=== PATIENT | female | born 1950 | race Caucasian/White ===

== ENCOUNTER 2024-07-19 09:35 | Emergency (ER) | payer MEDICARE, SELFPAY ==
--- NOTE | ~2024-07-19 | XR_ITS ---
EXAMINATION: XR chest 2V DATE: 07/19/2024 10:57 INDICATION: Pneumonia TECHNIQUE: frontal and lateral views of the chest were obtained. COMPARISON: None FINDINGS: Elevation the right hemidiaphragm. Subtle opacity in the medial right lower lung zone likely the righ t middle lobe which could represent atelectasis or pneumonia. No pulmonary edema, pleural effusion or pneumothorax. The cardiomediastinal silhouette is normal. Cholecystectomy clips in right upper quadr ant. Instrumented anterior spinal fusion in the cervical spine and posterior spinal fusion in the tho racolumbar spine. Multiple suture anchors at the right humeral head likely for rotator cuff repair. T here is persistent narrowing of the right subacromial space suggesting possible recurrent tear. IMPRESSION: 1. Elevation right hemidiaphragm with subtle opacities at the medial right lower lung zone which coul d represent atelectasis or pneumonia. Reviewed, dictated and finalized at location A. L MANAGEMENT ASSOCIATE IMPRESSION: 1. Elevation right hemidiaphragm with subtle opacities at the medial right lowe r lung zone which could represent atelectasis or pneumonia.
--- NOTE | ~2024-07-19 | CT_ITS ---
EXAMINATION: CT brain wo con DATE: 07/19/2024 10:43 INDICATION: Headache TECHNIQUE: Computed tomography (CT) of the head was performed without intravenous contrast. Sagittal and coronal reconstructions were performed. The mA was adjusted according to patient size. Iterative reconstruction technique was employed. The dose-length product was 605.33 mGy-cm. COMPARISON: None FINDINGS: No acute intracranial hemorrhage, acute infarction or abnormal extra axial fluid collection. Matter w sylvia matter Ventricles are normal and symmetric. No mass/mass effect. Changes of bilateral intraocula r lens replacement. The orbits and mastoid air cells are normal. Mild mucosal thickening in the left ethmoid sinus. Intracranial calcified cerebral atherosclerosis is noted. IMPRESSION: 1. Mild scattered white matter hypoattenuation consistent with chronic small vessel ischemic disease. No acute intracranial process. Reviewed, dictated and finalized at location A. CIPAL WEB DEVELOPER IMPRESSION: 1. Mild scattered white matter hypoattenuation consistent with chronic small ve ssel ischemic disease. No acute intracranial process.
[2024-07-19 09:46] VITALS: BP 131/98; PULSE 103; RESP 18; TEMP 36.6; O2SAT 97
--- NOTE | 2024-07-19 10:10 | ECG_ITS ---
Test Date: 2024-07-19 11:00:35 Measurements Intervals Superior Rate: 88 P: 15 HI: 186 QRS: -41 QRSD: 82 T: 2 QT: 345 QTc: 418 Interpretive Statements SINUS RHYTHM LOW QRS VOLTAGE IN PRECORDIAL LEADS CONSIDER ANTEROSEPTAL INFARCT, AGE INDETERMINATE INFERIOR INFARCT, AGE INDETERMINATE BASELINE ARTIFACT- I, II, AVR, AVL, AVF, V4-V6 ABNORMAL ECG No previous ECG available for comparison Electronically Signed On 07-19-2024 12:03:21 CLOSING AGENT by Angel Luis Orozco D.O.
[2024-07-19 10:17] VITALS: BP 129/71; PULSE 92; RESP 20; O2SAT 97
[2024-07-19 10:19] VITALS: O2SAT 96
--- NOTE | 2024-07-19 10:23 | ED.URI ---
HPI - URI/Sore Throat General Chief Complaint: Upper Respiratory Infection Stated Complaint: URI Time Seen by Provider: 07/19/24 10:05 History of Present Illness HPI Narrative: 73-year-old female with a past medical history including urinary incontinence, hypertension, hyperlipidemia. Today patient presents to the emergency department chief complaint of generalized malaise, worsening cough, nocturia, myalgias and body aches since Sunday. She was at a waiting room at another facility getting annual checkup and then she started developing symptoms of flu-like illness similar to other patrons around her. Patient states that she has not been able to go to sleep but she has been coughing relentlessly throughout the night, cough is productive. Reports generalized malaise and aches in major muscle groups. is at bedside providing collateral formation. Patient has been slightly more forgetful lately and falling frequently. Patient states she has not fallen and hit her head and does not syncopized during any of the events which just feels unsteady and blames her lack of sleep. On review of her previous visit summary from 4 days ago patient had recent medication changes including uptitration of her Abilify from 5 mg to 10 mg and and taking her off of Vyvanse. No other medication changes, otherwise unremarkable review of patient's external medical records. Related Data Allergies Allergy/AdvReac Type Severity Reaction Status Date / Time naproxen Allergy Intermediate Gastrointestinal Verified 07/19/24 10:23 Upset Review of Systems Review of Systems: As reviewed above in HPI Exam Narrative: GENERAL: [Well-appearing, well-nourished, and in no acute distress.] HEAD: [Normocephalic, atraumatic.] EYES: [PERRLA and EOMI.] ENT: Nares clear, no rhinorrhea or epistaxis. Mucous membranes moist. NECK: Supple. Cervical fusion scars evident, no tenderness to the midline spine CHEST: Coarse breath sounds, no respiratory distress or tachypnea, coughing frequently HEART: [Regular rate and rhythm]. No murmur heard. [Normal peripheral pulses.] ABDOMEN: Soft and nondistended, rectus diastasis is noted, no hernias or masses, [nontender], [No rigidity or guarding] EXTREMITIES: Normal range of motion. [No edema.] SKIN: Warm, dry, no rash. NEURO: [No focal deficits]. Alert and oriented [x3.] No ataxia in the arms or legs, ambulates without assistance, no nystagmus. PSYCH: [Normal mood and affect.] Course Vital Signs Vital signs: Vital Signs Temperature 36.6 C 07/19/24 09:46 Pulse Rate 103 H 07/19/24 09:46 Respiratory Rate 18 07/19/24 09:46 Blood Pressure 131/98 H 07/19/24 09:46 Pulse Oximetry 97 07/19/24 09:46 Temperature 36.6 C 07/19/24 09:46 Pulse Rate 81 07/19/24 13:01 Respiratory Rate 20 07/19/24 13:01 Blood Pressure 129/75 07/19/24 13:01 Pulse Oximetry 95 07/19/24 13:01 Oxygen Delivery Room Air 07/19/24 10:19 MDM - URI/Sore Throat MDM Narrative Medical decision making narrative: 73-year-old female presenting to the emergency department for flu-like symptoms including cough that is productive, generalized malaise, body aches, diarrhea. Patient states she has been coughing and not being able to sleep for last 2 days. Symptoms are going on for last 5 days. Exposed to recent sick contacts. She is otherwise well-appearing not any acute distress. Has normal neurological assessment, vital signs are all within normal limits, no tachycardia, fever, hypoxia or blood pressure concerns. Recent medication changes including changing her Abilify to 10 mg in stopping Vyvanse at her PCPs office 5 days ago. Patient coughs frequently throughout the examination is coarse breath sounds. Suspicion presently is for viral illness such as flu or COVID, RSV. Pneumonia or bronchitis or also possible. Electrolyte disturbances from the diarrhea could be causing her weakness. Given patient's age and risk factors especially with to frequent falls from feeling weak we ordered CT of the head, electrolyte panel, CBC, urinalysis give her fluid bolus and EKG obtained. Workup reveals no leukocytosis or anemia. Normal platelet count. Electrolytes within normal limits, normal renal function. Mildly elevated bilirubin but otherwise within normal limits LFTs. His urinalysis has no red or white cells, negative leukocyte esterase, skin bacteria seen. No symptoms of a urinary tract infection, will send for culture. For influenza positive with a right-sided opacity on x-ray consistent with pneumonia. Given patient's cough, stable vital signs and symptoms of a lower respiratory tract infection she was started on antibiotics including Rocephin azithromycin. Discussed admission with the patient and the at bedside. They feel they can take care of themselves and would like to trial outpatient therapy and antibiotics. Patient will be sent home with dual antibiotic coverage including Augmentin azithromycin with cough suppressing medications as needed. Discussed Tamiflu initiation given her symptoms. Patient has normal vital signs on reassessment, unremarkable laboratory assessments, appears well and able to ambulate. She is safe and stable for discharge home and was given strict return precautions and close outpatient PCP follow-up instructions. Medical Records Attestation: I reviewed the patient's medical records. Lab Data Attestation: I reviewed the patient's lab results. 07/19/24 10:27 07/19/24 10: Labs: Lab Results 07/19/24 07/19/24 Range/Units 10: 11:50 WBC 5.3 (4.5-10.0) K/mm3 RBC 5.25 (4.2-5.4) M/mm3 Hgb 15.3 H (12.0-15.0) g/dL Hct 45.5 (37.0-47.0) % MCV 86.7 (80-100) fl MCH 29.1 (26-34) pg MCHC 33.6 (32-36) g/dl RDW 12.5 (11.5-14.5) % Plt Count 149 L (150-375) k/mm3 MPV 9.9 (7.4-10.4) fl Immature Gran % (Auto) 0.4 (0-0.5) % Neut % (Auto) 79.9 H (45.5-73.1) % Lymph % (Auto) 10.5 L (18.3-44.2) % [place] % (Auto) 8.6 H (2.6-8.5) % Eos % (Auto) 0.0 (0-4.4) % Baso % (Auto) 0.6 (0.2-1.2) % Lymph # (Auto) 0.56 L (0.9-3.2) K/mm3 [place] # (Auto) 0.5 (0.1-0.6) K/mm3 Eos # (Auto) 0.0 (0-0.3) K/mm3 Baso # (Auto) 0.0 (0.0-0.1) K/mm3 Abs Immat Gran (auto) 0.02 (0.00-0.031) K/mm3 Absolute Neuts (auto) 4.3 (1.3-6.7) K/mm3 Absolute Nucleated RBC 0.000 (0.0-0.012) K/mm3 Nucleated RBC % 0.0 (0.0-0.2) % Sodium 140 (137-145) mmol/L Potassium 3.8 (3.4-5.0) mmol/L Chloride 99 (98-107) mmol/L Carbon Dioxide 29 (22-30) mmol/L Anion Gap 12 (4-12) mmol/L BUN 11 (7-17) mg/dL Creatinine 0.74 (0.7-1.0) mg/dL Estim Creat Clear Calc 51 ml/min Estimated GFR > 60 (59 - ) Glucose 103 (65-110) mg/dL Calcium 9.8 (8.4-10.2) mg/dL Total Bilirubin 1.5 H (0.2-1.3) mg/dL AST 43 H (14-36) U/L ALT 33 (6-35) U/L Alkaline Phosphatase 93 (38-126) U/L Total Protein 8.0 (6.3-8.2) g/dL Albumin 4.7 (3.5-5.1) g/dL Urine Color Yellow (Yellow) Urine Appearance Clear (Clear) Urine pH 5.5 (5.0-9.0) Ur Specific [place] 1.012 (1.001-1.035) Urine Protein Negative (Negative) mg/dL Urine Glucose (UA) Negative (Negative) mg/dL Urine Ketones Negative (Negative) mg/dL Ur Blood (Man) Negative (Negative) Urine Nitrate Positive H (Negative) Urine Bilirubin Negative (Negative) Urine Urobilinogen 0.2 (<2.0) mg/dL Leukocyte Esterase Rfl Negative (Negative) ABRAHAM/UL Urine RBC 0-2 (0-2) /hpf Urine WBC 0-5 (0-3) /hpf Ur Squamous Epith Cells None seen (Few) /hpf Urine Bacteria 3+ H /hpf Urine Casts 0-2 Influenza A (RT-PCR) Positive A (Negative) Influenza B (RT-PCR) Negative (Negative) RSV (RT-PCR) Negative (Negative) SARS-CoV-2 RNA (RT-PCR) Negative (Negative) Imaging Data Attestation: I personally reviewed and interpreted this imaging study as follows: My impression: Impressions Head CT 07/19/24 10:44 IMPRESSION: 1. Mild scattered white matter hypoattenuation consistent with chronic small vessel ischemic disease. No acute intracranial process. Chest X-Ray 07/19/24 10:59 IMPRESSION: 1. Elevation right hemidiaphragm with subtle opacities at the medial right lower lung zone which could represent atelectasis or pneumonia. Discharge Plan Discharge Clinical Impression: Influenza, Community acquired pneumonia Patient Disposition: Home, Self-Care Condition: Stable Instructions: Antibiotic Form, Influenza (ED), Community Acquired Pneumonia (DC) Additional Instructions: We will start you on medications to treat your influenza and your pneumonia including antibiotics and Tamiflu. We will send you home with benzonatate for cough suppression. If you have any worsening symptoms or any other concerns please return to the emergency department for re-evaluation and admission. Patient Language: [place] Citizen Prescriptions: New benzonatate 200 mg capsule 200 mg PO TID PRN (Reason: cough) Qty: 20 0RF azithromycin [Zithromax Z-Hector] 250 mg tablet See Rx Instructions PO .COMPLEX Qty: 6 0RF Rx Instructions: For 250 mg dose pack: take 500 mg today (day 1), then 250 mg for 4 days (days 2-5) amoxicillin-pot clavulanate 875-125 mg tablet 1 tablet PO Q12H 7 Days Qty: 14 0RF oseltamivir [Tamiflu] 75 mg capsule 75 mg PO Q12H 5 Days Qty: 10 0RF Follow-up/Referrals: PHYSICIAN NOT ON STAFF,NONSTAFF [Primary Care Provider] - Time of Disposition: 13:28
[2024-07-19] MEDS: LACTATED RINGERS 1,000 ML 999 ML IV CONT (10:31)
--- OUTSIDE RECORDS SUMMARY | 2024-07-19 10:33 | XMS_ITS | Referral Summary ---
Author Organization [facility] [employer] Address [address] [place] [address] Care Team Providers Care Breaker Operator Name Role Phone Jennifer Avilez MD Primary Care Provider [phone] Source Comments [facility],non-owned Affiliates and Associated Physician Practices is amultiple site organization consisting of ambulatory clinics and hospital sitesin [place], [place] and [place]. This disclosure is being madepursuant to the Care Everywhere program and may not contain all information available regarding this patient. Last updated 18.[facility] [employer] Allergies No known active allergies Medications * Be aware that medications may not be up to date on this document. Alwaysverify current medications with the patient. Medication Sig Dispensed Refills Start Date End Date Status lidocaine (Lidoderm) 5 % patch Apply 1 (one) patch to skin once daily Apply patch to most painful area and remove after 12 hours. May reapply a new patch 12 hours later. 6 patch 03/01/2022 Active cyclobenzaprine (Flexeril) 10 MG tablet Take 1 (one) tablet by mouth 3 times daily as needed for Muscle Spasms 15 tablet 03/01/2022 Active Active Problems No known active problems Social History Tobacco Use Types Packs/Day Years Used Date Smoking Tobacco: Never Smokeless Tobacco: Never Alcohol Use Standard Drinks/Week Comments Never 0 (1 standard drink = 0.6 oz pur e alcohol) AUDIT-C Answer Date Recorded Q1: How often do you have a drink containing alc ohol? Never 02/28/2022 Average Number of Drinks Not on file 022 Frequency of Binge Drinking Not on file 08/2021 Sex and Gender Information Value Date Recorded Sex Assigned at Not on file Gender Identity Not on file Sexual Orientation Not on file Last Filed Vital Signs Vital Sign Reading Time Taken Comments Blood Pressure 125/77 03/01/2022 2:22 AM CDT Pulse 88 03/01/2022 2:22 AM CDT Temperature 36.7 C (98 F) 02/28/2022 2:46 PM CDT Respiratory Rate 18 03/01/2022 2:22 AM CDT Oxygen Saturation 98% 03/01/2022 2:22 AM CDT Inhaled Oxygen Concentration - - Weight 59 kg (130 lb) 02/28/2022 2:46 PM CDT Height 160 cm (5' 3 ) 02/28/2022 2:46 PM CDT Body Mass Index 23.03 02/28/2022 2:46 PM CDT Plan of Treatment Not on file Procedures Procedure Name Priority Date/Time Associated Diagnosis Comments MAMMO BILAT DIAGNOSTIC Routine 10/25/2011 11:26 AM CDT Diffuse cystic mastopathy DEXA BONE DENSITY 2 SITES Routine 08/03/2008 11:30 AM CDT Special Screening for Osteoporosis from Last 3 Months or Most Recently Relevant to Health Maintenance Results * Mammogram Diagnostic Digital Bilateral (G0204) (10/25/2011 11:26 AM CDT) Anatomical Region Laterality Modality Bilateral Mammography 10/25/2011 11:3 6 AM CDT Narrative 10/25/2011 11:45 AM CDT DIGITAL BILATERAL DIAGNOSTIC MAMMOGRAMS DATE: 10/25/2011. PREVIOUS EXAM DATE: 09/26/2010. INDICATION: Diffuse, bilateral breast pain. History of fibrocystic breast disease. TECHNIQUE: Bilateral CC and MLO views. These images were interpreted with the aid of [employer] CAD (version 8.3). TECHNOLOGIST: RT Missy(Sheree)(M). TISSUE DENSITY: Dense. This may lower the sensitivity of mammography. Please correlate with clinical examination. FINDINGS: No significant new findings. Fibronodular parenchymal pattern is again demonstrated bilaterally. ASSESSMENT: BI-RADS 2 BENIGN. RECOMMENDATIONS: Continued screening mammography in one year. The above findings should be correlated with physical examination. A relatively nonspecific study should not preclude additional evaluation if suspicious findings are present clinically. An [employer] Certified Facility. [facility] utilize [employer] as a reminder system to notify patients of their next recommended mammogram. Procedure Note Lissa Webber MD - 10/25/2011 DIGITAL BILATERAL DIAGNOSTIC MAMMOGRAMS DATE: 10/25/2011. PREVIOUS EXAM DATE: 09/26/2010. INDICATION: Diffuse, bilateral breast pain. History of fibrocystic breast disease. TECHNIQUE: Bilateral CC and MLO views. These images were interpreted with the aid of [employer] CAD (version 8.3). TECHNOLOGIST: RT Missy(R)(M). TISSUE DENSITY: Dense. This may lower the sensitivity of mammography. Please correlate with clinical examination. FINDINGS: No significant new findings. Fibronodular parenchymal pattern is again demonstrated bilaterally. ASSESSMENT: BI-RADS 2 BENIGN. RECOMMENDATIONS: Continued screening mammography in one year. The above findings should be correlated with physical examination. A relatively nonspecific study should not preclude additional evaluation if suspicious findings are present clinically. An [employer] Certified Facility. [facility] utilize [employer] as a reminder system to notify patients of their next recommended mammogram. Jennifer Avilez MD MAMMO ORDERABLES * DEXA BONE DENSITY 2 SITES (08/03/2008 11:30 AM CDT) Anatomical Region Laterality Modality Mammography 08/03/2008 12:3 6 PM CDT Impressions 08/03/2008 12:59 PM CDT Using the T-scores of the hips, the patient meets WHO criteria for osteopenia. Therefore, she is thought to have an increased fracture risk as compared to the young adult control population. WORLD HEALTH ORGANIZATION DEFINITIONS OSTEOPENIA = -1 to -2.5 SD BELOW T SCORE. OSTEOPOROSIS = Less than -2.5 SD BELOW T SCORE Narrative 08/03/2008 12:59 PM CDT BONE MINERAL DENSITY STUDY INDICATION: Post menopausal ovarian failure osteoporosis screening. FINDINGS: The patient states that she has had extensive spine surgery therefore the examination was tailored to evaluate the hips. The average bone mineral density of the total hips is 0.768 g/cm2. The T-score is -1.9 and the Z-score is -0.8. Procedure Note Joseph Mooney MD - 08/03/2008 BONE MINERAL DENSITY STUDY INDICATION: Post menopausal ovarian failure osteoporosis screening. FINDINGS: The patient states that she has had extensive spine surgery therefore the examination was tailored to evaluate the hips. The average bone mineral density of the total hips is 0.768 g/cm2. The T-score is -1.9 and the Z-score is -0.8. IMPRESSION Using the T-scores of the hips, the patient meets WHO criteria for osteopenia. Therefore, she is thought to have an increased fracture risk as compared to the young adult control population. WORLD HEALTH ORGANIZATION DEFINITIONS OSTEOPENIA = -1 to -2.5 SD BELOW T SCORE. OSTEOPOROSIS = Less than -2.5 SD BELOW T SCORE Jennifer Avilez MD DEXA ORDERABLES from Last 3 Months or Most Recently Relevant to Health Maintenance Administered Medications Care Teams Breaker Operator Relationship Specialty [place] [id number] [address] [place] [address] PCP - General 09/22/10
--- OUTSIDE RECORDS SUMMARY | 2024-07-19 10:33 | XMS_ITS | Clinical Summary ---
Author Organization [facility] Address [address] [place] [address] Care Team Providers Care Cotton Buyer Name Role Phone Unavailable Primary Care Provider Unavailabl e Allergies No known active allergies Medications No known medications Active Problems No known active problems Social History Tobacco Use Types Packs/Day Years Used Date Smoking Tobacco: Never Assessed Comments Unknown Sex and Gender Information Value Date Recorded Sex Assigned at Not on file Legal Sex Female 11:10 AM PDT Gender Identity Not on file Sexual Orientation Not on file Plan of Treatment Health Maintenance Due Date Last Done Comments Dental Oral Exam 03/11/2022 09/08/2021 Dental Prophylaxis 03/11/2022 09/08/2021 Dental X-Ray: Bitewings 03/11/2022 09/08/2021 Dental X-Ray: Full Mouth 09/10/2024 09/09/2021, 08/26 Dental X-Ray: Panoramic 09/10/2024 09/09/2021, 09/08 Meningococcal B Vaccine Aged Out No l onger eligible based on patient's age to complete this topic Procedures Procedure Name Priority Date/Time Associated Diagnosis Comments PROPHYLAXIS - ADULT Routine 09/08/2021 1 0:15 AM CDT PANORAMIC RADIOGRAPHIC IMAGE Routine 09/08/2021 10:00 AM CDT INTRAORAL - COMPREHENSIVE SERIES OF RADIOGRAPHIC IMAGES Routine 09/08/2021 10:00 AM CDT COMPREHENSIVE ORAL EVALUATION - NEW OR ESTABLISHED PATIENT Routine 09/08/2021 10:00 AM CDT from Last 3 Months or Most Recently Relevant to Health Maintenance Insurance [employer]
--- OUTSIDE RECORDS SUMMARY | 2024-07-19 10:33 | XMS_ITS | Clinical Summary ---
Author Organization [facility] [employer] Address [address] [place] [address] Care Team Providers Care Worker'S Compensation Claims Examiner Name Role Phone Jennifer Avilez MD Primary Care Provider [phone] Source Comments [facility] [employer],non-owned Affiliates and Associated Physician Practices is amultiple site organization consisting of ambulatory clinics and hospital sitesin [place], [place], [place] and [place]. This disclosure is being madepursuant to the Care Everywhere program and may not contain all information available regarding this patient. Last updated 18.[facility] [employer] Allergies No known active allergies Medications * [...] 02/28/2022 2:46 PM CDT Plan of Treatment Health Maintenance Due Date Last Done Comments COLOGUARD (AGES 45-75) - COL ON CA SCREENING 1950 COLON MONITORING 1950 COLONOSCOPY - COLON CA SCREENING 1950 CT COLONOGRAPHY - COLON CA SCREENING 1950 Colorectal Cancer Screening 1950 FIT - COLON CA SCREENING 1950 FLEX SIG - COLON CA SCREENING 1950 LIPID TESTING 1950 HEPATITIS C SCREENING 10/28/1968 DTAP/TDAP/TD VACCINES (1 - Tdap) 1969 PNEUMOCOCCAL VACCINE 50+ (1 of 1 - PCV) 2000 ZOSTER VACCINE (1 of 2) 2000 MAMMOGRAM 10/24/2013 10/25/2011, 09/26/2010, 08/03/2008 COVID-19 VACCINE (3 - 2023-2 5 season) 2024 09/15/2020, 08/17/2020 INFLUENZA VACCINE (#1) 2024 9, 01/24/2017, 06/22/2016 DEPRESSION SCREENING 05/28/2024 Respiratory Syncytial Virus (RSV) Vaccine Pt: or over 60 yrs (1 - 1-dose 75+ series) 2025 BONE DENSITY TESTING Completed 08/03/2008 HEPATITIS B VACCINE Aged Out No longe r eligible based on patient's age to complete this topic HIB VACCINE Aged Out No longer eligi ble based on patient's age to complete this topic HPV VACCINE Aged Out No longer eligi ble based on patient's age to complete this topic MENINGOCOCCAL (Group B) VACCINE Aged Out No longer eligible b ased on patient's age to complete this topic MENINGOCOCCAL VACCINE Aged Out No trini james eligible based on patient's age to complete [...] images were interpreted with the aid of [employer] CAD (version 8.3). TECHNOLOGIST: RT Missy(Sheree)(M). TISSUE [...] if suspicious findings are present clinically. An [employer] Certified Facility. [facility] utilize [employer] as a reminder system to notify patients of their next recommended mammogram. Procedure Note Lissa Webber MD - 10/25/2011 DIGITAL BILATERAL DIAGNOSTIC MAMMOGRAMS DATE: 10/25/2011. PREVIOUS EXAM DATE: 09/26/2010. INDICATION: Diffuse, bilateral breast pain. History of fibrocystic breast disease. TECHNIQUE: Bilateral CC and MLO views. These images were interpreted with the aid of [employer] CAD (version 8.3). TECHNOLOGIST: RT Missy(R)(M). TISSUE [...] if suspicious findings are present clinically. An [employer] Certified Facility. [facility] utilize [employer] as a reminder system to notify patients [...] or Most Recently Relevant to Health Maintenance Care Teams Worker'S Compensation Claims Examiner Relationship Specialty Start [place] [id number] [address] [place] [address] PCP - General 09/22/10
--- OUTSIDE RECORDS SUMMARY | 2024-07-19 10:33 | XMS_ITS | Clinical Summary ---
Author Organization [facility] Administrative Offices Address [address] [place] [address] Care Team Providers Care Deputy Director Of Nursing Name Role Phone Lissa Maldonado Primary Care Provider [phone] Allergies Active Allergy Reactions Criticality Noted Date Comments Naproxen Nausea and Vomiting Low 02/10/2010 Medications L-methylfolate (DEPLIN) 15 mg Tablet Take 15 mg by mouth daily. Active suvorexant 20 mg Tablet Take 20 mg by mouth daily. Active naloxone (NARCAN) 4 mg/spray [place], Non-Aerosol EMERGENCY USE ONLY: Administer 1 spray (4 mg) in one nostril one time. May repeat in alternating nostrils every 2-3 min until responsive or EMS arrives. 2 Each 3 0 Active alendronate (FOSAMAX) 70 mg tablet TAKE 1 TABLET(70 MG) BY MOUTH EVERY 7 DAYS ON AN EMPTY STOMACH BEFORE OTHER MEDICATIONS, WITH 8 OUNCES OF WATER, STAY UPRIGHT FOR 30 MINUTES 12 Tablet 3 4 Active ALPRAZolam (XANAX) 2 mg tablet Take 2 mg by mouth nightly as needed for Insomnia. 4 Active fluvoxaMINE (LUVOX) 100 mg tablet Take 100 mg by mouth 3 times daily. 4 Active pravastatin (PRAVACHOL) 40 mg tabletIndicati ons:Atheroscle rosis of aorta Take 1 Tablet (40 mg) by mouth daily with supper. 100 Tablet 3 5 Active dextroamphetam ine sulfate (DEXTROSTAT) 10 mg Tablet Take 20 mg by mouth 2 times daily. 5 Active ARIPiprazole (ABILIFY) 10 mg tablet Take 1 Tablet by mouth daily. 5 Active Vyvanse 70 mg capsule 4 025 Discontinu ed(Alterna te therapy prescribed ) ARIPiprazole (ABILIFY) 5 mg tablet Take 5 mg by mouth daily. 4 025 Discontinu ed(Alterna te therapy prescribed ) pravastatin (PRAVACHOL) 40 mg tabletIndicati ons:Atheroscle rosis of aorta TAKE 1 TABLET BY MOUTH EVERY DAY WITH SUPPER 100 Tablet 2 4 025 Discontinu ed(Reorder ) Active Problems Problem Noted Date Diagnosed Date Heterogeneously dense tissue of both breasts on mammography 07/14/2024 Age-related osteoporosis wit hout current pathological fracture 01/27/2024 Scoliosis of lumbar spine 01/11/2024 History of fusion of cervical spine 01/11/2024 History of fusion of thoracic spine 01/11/2024 History of fusion of lumbar spine 01/11/2024 Neuropathy 01/11/2024 Transaminitis 12/06/2023 Primary insomnia 07/18/2016 Overview (07/18/2016): Under care of Dr Quarles Atherosclerosis of aorta 09/29/2014 Overview (09/29/2014): Noted on US of Aorta done on 08/07/2013 ADD (attention deficit disorder) 09/29/2014 Overview (09/29/2014): Under care of Dr Jose Quarles Nontoxic multinodular goiter 06/21/2010 Disorder of bone and cartilage, unspecified 09/25 Recurrent major depressive disorder, in full rem ission 08/05/2008 Vitamin D deficiency 08/05/2008 Resolved Problems Problem Noted Date Diagnosed Date Resolved Date Pain in limb 09/09/2014 01/11/2024 Neck sprain 08/27/2014 01/11/2024 Sprain of foot 08/27/2014 01/11/2024 Occipital bone fracture 08/16/201412/26 Lumbago 08/05/2008 01/11/2024 Encounter for long-term (cur rent) use of other medications 07/28/2008 03/30/2020 Encounters Date Type Department Care Team Description 07/16/2024 External Device Data [facility] ABSTRACTION Provider, Abstract 07/16/2024 External Device Data [facility] ABSTRACTION Provider, Abstract 07/14/2024 11:00 AM CAREER EDUCATION TEACHER Office Visit [address] [phone] Lissa Maldonado DO Age-related osteoporosis without current pathological fracture (Primary Dx); Atherosclerosis of aorta; Mixed hyperlipidemia; Nontoxic multinodular goiter; Attention deficit hyperactivity disorder (ADHD), unspecified ADHD type; Primary insomnia; Recurrent major depressive disorder, in full remission; Heterogeneously dense tissue of both breasts on mammography 07/08/2024 External Device Data [facility] ABSTRACTION Provider, Abstract 06/24/2024 External Device Data [facility]STRACTION Provider, Abstract 05/29/[address] [phone] Paloma Bernal MD Atherosclerosis of aorta 05/07/[address] [phone] Lissa Maldonado DO Paperwork 05/07/[address] [phone] Lissa Maldonado DO from Last 3 Months Immunizations Immunization Administration Dates Next Due (ADACEL/BOOSTRIX)(10 YR UP) TDAP VACCINE, 0.5ML, IM 03/30/2020 (PFIZER)(12 YR UP) COVID-19 VACCINE - EMERGENCY USE AUTHORIZATION, MRNA, [id number](PF) 30 MCG/0.3 ML IM SUSP 04/13/2021 (PNEUMOVAX 23)(50 YRS UP) PN EUMOCOCCAL POLYSACCHARIDE (PPV23) 0.5 ML, IM 04/09/2019 (PREVNAR 13)(6 WKS UP) PNEUM OCOCCAL CONJUGATE (PCV13) 0.5 ML, IM 06/22/2016 (SPIKEVAX) (12 YRS UP PRIMAR Y SERIES) COVID-19 VACCINE - MRNA-1273(PF) 100 MCG/0.5 ML IM SUSP 09/06/2020,08/17/2020 INFLUENZA VACCINE HIGH DOSE QUADRIVALENT 65 YR UP PF IM 04/09/2023,03/07/2022,03/30/2021,02/24 INFLUENZA VACCINE HIGH DOSE TRIVALENT SPLIT VIRUS, (65 YR UP), 0.5ML (PF), IM 06/02/2024 Influenza Vaccine High Dose 65+ Yrs IM 9,01/24/2017,06/22/2016 Skin Test TB 01/08/2017 Family History Medical History Relation Name Comments Heart Disease Brother 3 80's Other Brother 3 80's Leukemia Unknown Brother 3 80's Other Brother 4 64 yrs Obesity Other Sister 1 76 yrs Alcohlic Healthy Sister 2 72 yrs Relation Name Status Comments Brother 1 (Age 55 yrs) Suicid e Brother 2 (Age 78 yrs) Kidney failure, Alcohlism Brother 3 80's Other Brother 4 64 yrs Alive Father (Age 88 yrs) Aortic Aneurysm rupture Mother (Age 76 yrs) unknow n Sister 1 76 yrs Alive Sister 2 72 yrs Alive Social History Tobacco Use Types Packs/Day Years Used Date Smoking Tobacco: Never Passive Smoke Exposure: Never Smokeless Tobacco: Never Tobacco Cessation:Counseling Given: No Alcohol Use Standard Drinks/Week Comments Yes 0 (1 standard drink = 0.6 oz pur e alcohol) social Financial Resource Strain Answer Date R ecorded How hard is it for you to pa y for the very basics like food, housing, medical care, and heating? Not hard at all 05/10/2022 Food Insecurity Answer Date Recorded In the past 12 months, have you worried that your food would run out before you had money to buy more? Never true 05/10/2022 In the past 12 months, did y ou run out of food and didn't have money to buy more? Never true 05/10/2022 Transportation Needs Answer Date Record ed In the past 12 months, has l ack of transportation kept you from medical appointments or from getting medications? No 05/10/2022 Lack of Transportation (Non-Medical) Not on file 05/10/2022 Feeling Safe Answer Date Recorded Are you in a relationship wi th someone who hurts you emotionally and/or physically? No 12/11/2023 Comments No Sex and Gender Information Value Date Recorded Sex Assigned at Not on file Legal Sex Female 5:56 AM CAREER EDUCATION TEACHER Gender Identity Not on file Sexual Orientation Not on file Last Filed Vital Signs Vital Sign Reading Time Taken Comments Blood Pressure 104/68 07/14/2024 10:48 AM CAREER EDUCATION TEACHER Pulse 88 07/14/2024 10:48 AM CAREER EDUCATION TEACHER Temperature 36.2 C (97.1 F) 07/14/2024 10:48 AM CAREER EDUCATION TEACHER Respiratory Rate 13 07/14/2024 10:48 AM CAREER EDUCATION TEACHER Oxygen Saturation 93% 07/14/2024 10:48 AM CAREER EDUCATION TEACHER Inhaled Oxygen Concentration - - Weight 68.3 kg (150 lb 9.6 oz) 07/14/2024 10:48 AM CAREER EDUCATION TEACHER Height 162.6 cm (5' 4 ) 07/14/2024 10:48 AM CAREER EDUCATION TEACHER Body Mass Index 25.85 07/14/2024 10:48 AM CAREER EDUCATION TEACHER Plan of Treatment Upcoming Encounters Date Type Department Care Team (Late st Contact Info) Description 01/12/2025 10:00 AM CDT Office Visit [facility] [id number] [phone] Lissa Maldonado, [id number] [place] [phone] Health Maintenance Due Date Last Done Comments FIT-DNA Q 3 years 11/03/1995 FIT/FOBT Q 1 year 11/03/1995 Flex Sig/CT Colonography Q 5 years 11/03/1995 ZOSTER VACCINE (1 of 2) 2000 COVID-19 Vaccine (2023-2 5 season) 2024 04/13/2021, 09/06/2020, 08/17/2020 [place] Preventative Visit/Annual Wellness Visit 05/28/2024 01/11/2024, 05/10/2022, 03/30/2021, Additional history exists BREAST CANCER SCREENING 02/10/2025 02/11/20 24, 07/04/2022, 05/18/2020, Additional history exists OSTEOPOROSIS SCREENING 07/04/2025 , 07/04/2022, 05/18/2020, Additional history exists RSV VACCINE (60+ or ) (1 - 1-dose 75+ series) 2025 COLORECTAL SCREENING 12/10/2025 12/11/2023, 12/11/2023, 12/09/2014 Colorectal Cancer Screening 12/10/2025 DTAP/TDAP/TD VACCINES (2 - T d or Tdap) 03/30/2030 03/30/2020 PNEUMOCOCCAL VACCINE 65+ YEARS Completed 04/09/2019 , 06/22/2016 INFLUENZA VACCINE Completed 06/02/2024, , 03/07/2022, Additional history exists Medical Devices Implanted Type Area Entertainment Dancer Device Identifier Shelf Expiration Date Model / Serial / Lot Plate Foot Mtp/Mpj Combo 4d Rt 70-0110 - [id number] Implanted:Qty: 1 on 08/10/2017 by Damir Vicente MD at [facility] Plate Right: Toe [employer] 70-0110 / / Description:Load # 4 AUG 09 2017 Screw Acutrak 24mm At2-S24-S - [id number] Implanted:Qty: 1 on 08/10/2017 by Damir Vicente MD at [facility] Screw Right: Toe [employer] 11/16/2023 AT2-S24-S / / [id number] Description:Right great toe. All [employer] foot components are processed on requisition,[id number]. Screw Hexalobe 3.5x10mm 30-0256 - [id number] Implanted:Qty: 1 on 08/10/2017 by Damir Vicente MD at [facility] Screw Right: Toe [employer] 30-0256 / / Description:Load # 4 aug 09 Screw Hexalobe Loc 3.5x16mm 30-0236 - [id number] Implanted:Qty: 3 on 08/10/2017 by Damir Vicente MD at [facility] Screw Right: Toe [employer] 30-0236 / / Description:Load # 4 AUG 09 2017 Screw Hexalobe 3.5x18mm 30-0260 - [id number] Implanted:Qty: 1 on 08/10/2017 by Damir Vicente MD at [facility] Screw Right: Toe [employer] 30-0260 / / Description:Load # 4 AUG 09 2018 Wire K [id number] Ws-1407st - [id number] Implanted:Qty: 2 on 08/10/2017 by Damir Vicente MD at [facility] Wire Right: Toe [employer] WS-1407ST / / Rods In Back,Bolts In Back And Neck Cage Bolts In Right Shoulder Explanted Type Area Entertainment Dancer Device Identifier Shelf Expiration Date Model / Serial / Lot Screw Hexalobe 3.5x22mm 30-0262 - [id number] Explanted:Qty: 1 on 08/10/2017 by Damir Vicente MD at [facility] Screw Right: Toe [employer] 30-0262 / / Description:Load # 4 AUG 09 2017 Screw Hexalobe 3.5x16mm 30-0259 - [id number] Explanted:Qty: 1 on 08/10/2017 by Damir Vicente MD at [facility] Screw Right: Toe [employer] 30-0259 / / Description:Load # 4 AUG 09 2018 Wire K Trocar [id number] - [id number] Explanted:Qty: 1 on 08/10/2017 by Damir Vicente MD at [facility] Wire Right: Toe [employer] [facility] [[email or web address] [id number] / / Description:Load # 1 AUG 03 2018 Right great toe. Procedures Procedure Name Priority Date/Time Associated Diagnosis Comments MAMMO 3D RALF SCREEN BILAT W OR WO CAD Routine 02/11/2024 1:15 PM CDT Screening mammogram, encounter for COLONOSCOPY REPORT 12/11/2023 9: 17 AM CDT XR DEXA BONE DENSITY AXIAL 1 OR MORE SITES Routine 07/04/2022 12:52 PM CAREER EDUCATION TEACHER Post-menopausal Osteopenia of left forearm from Last 3 Months or Most Recently Relevant to Health Maintenance Results * MAMMO 3D RALF SCREEN BILAT W OR WO CAD (02/11/2024 1:15 PM CDT) Anatomical Region Laterality Modality Breast Bilateral Mammography 02/11/2024 1:15 PM CDT Impressions 02/11/2024 1:47 PM CDT IMPRESSION: Negative bilateral screening mammogram. Recommend routine followup. OVERALL FINAL ASSESSMENT: BI-RADS CATEGORY 1: Negative DICTATION LOCATION: [facility] Narrative 02/11/2024 1:47 PM CDT BILATERAL SCREENING DIGITAL MAMMOGRAMS WITH COMPUTER ASSISTED DIAGNOSIS WITH TOMOGRAPHY DATE: 02/11/2024 1:15 PM HISTORY: Annual screening. COMPARISON: 07/04/2022 and 05/18/2020. TECHNIQUE: A bilateral screening mammogram was performed. Low-dose full-field digital breast tomosynthesis examination was performed with 2D and 3D acquisitions. Examination is read in conjunction with computer aided detection. BREAST COMPOSITION: Heterogeneously dense, which limits the sensitivity of mammography. FINDINGS: No new masses, suspicious calcifications, or areas of asymmetry or distortion are identified. The images were reviewed using the CAD system. Procedure Note Brigida Panda MD - 02/11/2024 BILATERAL SCREENING DIGITAL MAMMOGRAMS WITH COMPUTER ASSISTED DIAGNOSIS WITH TOMOGRAPHY DATE: 02/11/2024 1:15 PM HISTORY: Annual screening. COMPARISON: 07/04/2022 and 05/18/2020. TECHNIQUE: A bilateral screening mammogram was performed. Low-dose full-field digital breast tomosynthesis examination was performed with 2D and 3D acquisitions. Examination is read in conjunction with computer aided detection. BREAST COMPOSITION: Heterogeneously dense, which limits the sensitivity of mammography. FINDINGS: No new masses, suspicious calcifications, or areas of asymmetry or distortion are identified. The images were reviewed using the CAD system. IMPRESSION: Negative bilateral screening mammogram. Recommend routine followup. OVERALL FINAL ASSESSMENT: BI-RADS CATEGORY 1: Negative DICTATION LOCATION: [facility] us Lissa Cardonarocco Maldonado DO MAMMO ORDERABLES Final Res ult * COLONOSCOPY REPORT (12/11/2023 9:17 AM CDT) Narrative Procedure Note Tonie Mars DO - 12/11/2023 9:17 AM CDT [facility] Patient Name: Daniela Cotter Procedure Date: 12/11/2023 Date of : 1950 Attending MD: Tonie Mars MD, Procedure: Colonoscopy Indications: Chronic diarrhea, Fecal incontinence Providers: Tonie Mars MD Referring MD: Paloma Bernal MD Medicines: Monitored Anesthesia Care Complications: No immediate complications. Procedure: Informed consent was obtained for the procedure, including moderate sedation after risks were discussed. Based on the pre-procedure assessment, including review of the patient's medical history, medications, allergies, and review of systems, the patient was deemed to be an appropriate candidate for sedation. A timeout was performed. Continuous ECG monitoring, pulse oximetry, blood pressure monitoring, and direct observation were performed. The Colonoscope was introduced through the anus and advanced to the terminal ileum, with identification of the appendiceal orifice and IC valve. The colonoscopy was performed without difficulty. The patient tolerated the procedure well. The quality of the bowel preparation was evaluated using the BBPS ([place] Bowel Preparation Scale) with scores of: Right Colon = 3 (entire mucosa seen well with no residual staining, small fragments of stool or opaque liquid), Transverse Colon = 3 (entire mucosa seen well with no residual staining, small fragments of stool or opaque liquid) and Left Colon = 3 (entire mucosa seen well with no residual staining, small fragments of stool or opaque liquid). The total BBPS score equals 9. The quality of the bowel preparation was excellent. A physical exam was performed. Informed consent was obtained from the patient after explaining all of the risks (perforation, bleeding, infection, and adverse effects to the medication), benefits and alternatives to the procedure which the patient appeared to understand and so stated. The patient was connected to the monitoring devices and placed in the left lateral position. Continuous oxygen was provided with a nasal cannula and IV medicine administered through an indwelling cannula. After adequate conscious sedation was achieved, a digital exam was performed and the colonoscope introduced into the rectum and advanced under direct visualization to the terminal ileum. The terminal ileum and cecum were identified by visual landmarks. The scope was subsequently removed slowly while carefully examining the color, texture, anatomy and integrity of the mucosa on the way out. In the rectum, the scope was retroflexed to evaluate for internal hemorrhoids and anorectal pathology. The patient was subsequently transferred to the recovery area in satisfactory condition. Estimated Blood Loss: Estimated blood loss: none. Findings: KEITH without stricture or mass. Poor rectal tone. The terminal ileum appeared normal. One 3 mm sessile polyp in the cecum. The polyp was removed with a cold snare. Resection and retrieval were complete. Sigmoid diverticulosis, minimal severity. Normal appearance of the colonic mucosa. Biopsies for histology were taken with a cold forceps from the entire colon for evaluation of microscopic colitis. Small internal hemorrhoids. Impression: Poor rectal tone Polyp x1 Diverticulosis Random colon biopsies for microscopic colitis Recommendation: - Await pathology results. - Repeat colonoscopy in 7-10 years pending pathology. - Anorectal manometry ordered, pending completion. Will likely need pelvic floor PT with biofeedback. - Note: Colonoscopy for surveillance purposes is optional between age 75-85. The decision for continued surveillance should be based patient preference, life expectancy, overall health, and prior surveillance history. If continued surveillance appropriate, see above recommendation for interval. - No driving or operating heavy machinery 12-24 hours after anesthesia. - Advance to previous diet as tolerated. - Resume previous home medications. - Written discharge instructions were provided to the patient. - The findings and recommendations were discussed with the designated responsible adult. Attending Participation: I personally performed the entire procedure. Tonie Mars MD 12/11/2023 9:17:22 AM Number of Addenda: [address]; [place] [address] Tonie Mars DO GI PROCEDURE ORDERABLES Svetlana l Result * XR DEXA BONE DENSITY AXIAL 1 OR MORE SITES (07/04/2022 12:52 PM CAREER EDUCATION TEACHER) Anatomical Region Laterality Modality Computed Radiogr aphy 07/04/2022 12:5 2 PM CAREER EDUCATION TEACHER Impressions 07/04/2022 12:58 PM CAREER EDUCATION TEACHER FINDINGS/IMPRESSION: Osteoporosis with a lowest T score of -2.5, previously -2.4. Fracture risk is high. FRAX cannot be calculated due to lack of adequate hip imaging. Please refer to the full report available in [facility] under the PACS Images tab. If a faxed copy is needed, please call [phone]. DICTATION LOCATION: [facility] Narrative 07/04/2022 12:58 PM CAREER EDUCATION TEACHER SUMMARY DEXA REPORT DATE: 07/04/2022 12:52 PM INDICATION: Postmenopausal Procedure Note Marbella Feliz MD - 07/04/2022 SUMMARY DEXA REPORT DATE: 07/04/2022 12:52 PM INDICATION: Postmenopausal FINDINGS/IMPRESSION: Osteoporosis with a lowest T score of -2.5, previously -2.4. Fracture risk is high. FRAX cannot be calculated due to lack of adequate hip imaging. Please refer to the full report available in [facility] under the PACS Images tab. If a faxed copy is needed, please call [phone]. DICTATION LOCATION: [facility] Heather Bernal NP DIAGNOSTIC IMAGING ORDERABLES Fi nal Result from Last 3 Months or Most Recently Relevant to Health Maintenance Insurance [employer] [facility] [employer] Commercial Advance Directives For more information, please contact: [phone] Documents on File Type Date Recorded Patient Hospice Music Therapist Expl anation Advance Directive POA 08/10/2017 4:53 AM A dvance Directive POA * Full Code (Latest Code Status on File) Date Activated Date Inactivated Comments 12/11/2023 7:18 AM 12/11/2023 12:36 PM * Full Code Date Activated Date Inactivated Comments 08/10/2017 7:32 AM 08/10/2017 3:01 PM * Full Code Date Activated Date Inactivated Comments 08/10/2017 5:47 AM 08/10/2017 7:32 AM * Full Code Date Activated Date Inactivated Comments 12/09/2014 8:30 AM 12/09/2014 1:41 PM Care Teams Deputy Director Of Nursing Relationship Specialty Start [place] [id number] [phone] PCP - General Family Practice 01/11/24 Peewee Hidalgo DDS [facility] 05/28/20
--- OUTSIDE RECORDS SUMMARY | 2024-07-19 10:33 | XMS_ITS | Patient Health Summary ---
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 upper-outer right breast, which are heterogeneous. The patient has outside films from [facility]. Comparison would be an invaluable step in evaluation. ASSESSMENT: BIRADS Category 0 - Incomplete, need additional imaging evaluation/comparison with prior films. RECOMMENDATION: Obtain old films. The findings were discussed with the patient. She understands that at the point the old films are obtained, a decision will be made. If the calcifications are not present on the old films, biopsy would be recommended. Procedure Note Noa Najera / Adam Johnson (Clerical Edit / Wandy Rodriguez C - 08/07/2008 DIGITAL RIGHT DIAGNOSTIC MAMMOGRAM WITH CAD CORRELATION DATE: 08/06/2008 INDICATION: Abnormal mammograms, calcifications. TECHNIQUE: Right magnification views, CC and MLO. The study was interpreted with the aid of CAD. TECHNOLOGIST: SHAHEED TRAMMELL. FINDINGS: A small cluster of microcalcifications is present in the upper-outer right breast, which are heterogeneous. The patient has outside films from [facility]. Comparison would be an invaluable step in evaluation. ASSESSMENT: BIRADS Category 0 - Incomplete, need additional imaging evaluation/comparison with prior films. RECOMMENDATION: Obtain old films. The findings were discussed with the patient. She understands that at the point the old films are obtained, a decision will be made. If the calcifications are not present on the old films, biopsy would be recommended. Jennifer Avilez MD MAMMO ORDERABLES * DEXA [...] T SCORE Jennifer Avilez MD DEXA ORDERABLES * MAMMO SCREENING DIGITAL IMAGE BILAT (08/03/2008 11:07 AM CDT) Anatomical Region Laterality Modality Breast Bilateral Mammography 08/03/2008 12:3 5 PM CDT Narrative 08/04/2008 8:53 AM CDT Bilateral Screening Digital Mammograms with CAD Indication: Screening. Technique: Bilateral standard CC and MLO views. These images were interpreted with the aid of R2 CAD (version 8.3). Technologist: SHAHEED ROSS. Tissue density: Dense, which lowers the sensitivity of mammography. Findings: A small cluster of microcalcifications in the upper-outer right breast is noted. No other discrete abnormality is identified. Assessment: Incomplete, needs additional imaging evaluation - BIRADS 0. Recommendation: Magnification of the area of concern in the upper-outer quadrant of the right breast. The above findings should be correlated with physical examination. A relatively nonspecific study should not preclude additional evaluation if suspicious findings are present clinically. An [employer] Certified Facility. Procedure Note Get Verdugo MD / Adam Johnson (Clerical Edit - 08/03/2008 Bilateral Screening Digital Mammograms with CAD Indication: Screening. Technique: Bilateral standard CC and MLO views. These images were interpreted with the aid of R2 CAD (version 8.3). Technologist: SHAHEED ROSS. Tissue density: Dense, which lowers the sensitivity of mammography. Findings: A small cluster of microcalcifications in the upper-outer right breast is noted. No other discrete abnormality is identified. Assessment: Incomplete, needs additional imaging evaluation - BIRADS 0. Recommendation: Magnification of the area of concern in the upper-outer quadrant of the right breast. The above findings should be correlated with physical examination. A relatively nonspecific study should not preclude additional evaluation if suspicious findings are present clinically. An [employer] Certified Facility. Jennifer Avilez MD MAMMO ORDERABLES * (ABNORMAL) PT-INR (12/22/2007 5:35 AM CDT) Only the most recent of3 resultswithin the time period is included. PT 11.5(H) 9.4 - 11.4 seconds [facility] INR 1.12 SEE BELOW [facility] Comment: 0.92-1.12 Normal 2.0-3.0 Therapeutic Low Risk 2.5-3.5 Therapeutic High Risk 12/22/2007 5:35 AM CDT Mena Vail MD LAB - COAGULATIO N ORDERABLES [facility] * (ABNORMAL) CBC W/O DIFFERENTIAL (12/22/2007 5:35 AM CDT) Only the most recent of2 resultswithin the time period is included. WBC 4.99(DE) 4.0 - 11.0 X(10)3/L [facility] RBC 4.27 3.8 - 5.3 X(10)6 [facility] Hemoglobin 13.1(DE) 12.0 - 16.0 gm/dl [facility] Hematocrit 37.4(DE) 36 - 47 % [facility] MCV 87.6 80.0 - 99.0 fl [facility] MCH 30.7 26 - 34 pg [facility] MCHC 35.0 32.0 - 37.0 gm/dl [facility] RDW 12.1 11.5 - 14.5 % [facility] Platelet Count 191 150 - 400 K/CUMM [facility] MPV 9.7 9.2 - 12.2 fl [facility] Comment Manual Diff Manual Diff Not Indicated [facility] 12/22/2007 5:35 AM CDT Mena Vail MD LAB - HEMATOLOGY ORDERABLES Performing Organization Address City/[facility]/ZIP Co de Phone Number [facility] * (ABNORMAL) COMPREHENSIVE METABOLIC PANEL (12/22/2007 5:35 AM CDT) Only the most recent of3 resultswithin the time period is included. Glucose 82 65 - 105 mg/dl [facility] BUN 11 7 - 17 mg/dl [facility] Creatinine 0.8 0.7 - 1.2 mg/dl [facility] Sodium 143 137 - 145 mmol/L [facility] Potassium 3.2(L) 3.6 - 5.0 mmol/L [facility] Chloride 105 98 - 107 mmol/L [facility] CO2 29 22 - 30 mmol/L [facility] Calcium 8.9 8.4 - 10.2 mg/dl [facility] Bilirubin Total 1.6(H) 0.2 - 1.3 mg/dl [facility] Alkaline Phosphatase 93(DE) 38 - 126 U/L [facility] AST 36(DE) 14 - 36 U/L [facility] ALT 34 9 - 52 U/L [facility] Protein Total 6.0(DL) 6.3 - 8.2 gm/dl [facility] Albumin 3.9 3.5 - 5.0 gm/dl [facility] 12/22/2007 5:35 AM CDT Mena Vail MD LAB - CHEMISTRY ORDERABLES Performing Organization Address City/[facility]/ZIP Co de Phone Number [facility] * CARDIAC, ECHOCARDIOGRAM COMPLETE ORDER (12/21/2007 11:04 AM CDT) Narrative Procedure Note Sheree Romero - 12/21/2007 11:[address] [address] Cardiology - Doppler Echocardiogram DATE OF PROCEDURE: TAPE: folder#: Daniela Zuniga is a 57-year-old admitted to the hospital with atypicalchest pain in association with nausea and vomiting. Risk factors for coronary artery disease are nil. PHYSICAL EXAMINATION: VITAL SIGNS: Showed pulse rate was 80, _per minute , blood pressure at rest was 144/82. HEART: Examination showed S1 was normal, S2 was normal. MEDICATIONS: See the list. ST electrocardiogram showed normal sinus rhythm. Mrs. Zuniga exercised 15 seconds into stage III of Jean-Pierre protocol. Thiswas equal to 7 METS. The test was terminated because of achievement of thetarget heart rate and also fatigue. Maximum heart rate obtained was 160, thatwas 98% of the predicted rise in heart rate. Maximum blood pressureobtained was 152/[address]-T changes were noted. CONCLUSIONS: 1. Negative stress test by __e k g criteria. 2. __average functional capacity functional capacity __with attainement of 7 METS which was equal __to 24.5 ml of o2 cccconjumption per minute . 3. Absent for chest pain. 4. Adequate blood pressure response. RECOMMENDATIONS: Correlate these findings with the scan. cc: Mena Vail M.D. [id number] [place] [id number] [address] Williams Romero MD ECHO ORDERABL ES * US ABDOMEN COMPLETE (12/21/2007 11:00 AM CDT) Anatomical Region Laterality Modality Abdomen Other 12/21/2007 11:0 0 AM CDT Narrative 12/21/2007 12:26 PM CDT Ultrasound Abdomen Complete 12/21/2007 Indication- Abdominal pain. Technique- Multiple longitudinal and transverse grayscale images of the abdomen were obtained. Findings- The liver echotexture is normal. The gallbladder is surgically absent. The common bile duct measures 4 mm in width. The pancreas is not well seen. The right kidney is unremarkable measuring 8.7 cm in length. The spleen is not visualized due to overlying bowel gas. Impression- Unremarkable post cholecystectomy ultrasound. Reading Kady PICKERING M.D. Releasing Kady IPCKERING M.D. Released Date Time- 12/21/07 1226 MENA HUNT MANISHA S REF- CON- PCP- MATTIE APPIAH SCP- Procedure Note Donna Geneva W - 12/21/2007 Ultrasound Abdomen Complete 12/21/2007 Indication- Abdominal pain. Technique- Multiple longitudinal and transverse grayscale images of the abdomen were obtained. Findings- The liver echotexture is normal. The gallbladder is surgically absent. The common bile duct measures 4 mm in width. The pancreas is not well seen. The right kidney is unremarkable measuring 8.7 cm in length. The spleen is not visualized due to overlying bowel gas. Impression- Unremarkable post cholecystectomy ultrasound. Reading Kady PICKERING M.D. Releasing Kady PICKERING M.D. Released Date Time- 12/21/07 1226 MENA HUNT MANISHA S REF- CON- PCP- MATTIE APPIAH [facility]- Mena Vail MD ORDERABLES * NUC MYOCARDIAL PERF W/WALL MOTION (12/21/2007 10:42 AM CDT) Anatomical Region Laterality Modality Chest Other 12/21/2007 10:4 2 AM CDT Narrative 12/23/2007 7:45 AM CDT Dual isotope radionuclide gated SPECT myocardial perfusion scan 12/21/2007 Indication- Chest Pain Radiopharmaceutical- Tc 99m Tetrofosmin 40.0 mCi IV administered at stress. Technetium 99m Tetrofosmin 10.0 mCi IV administered at rest. Findings- Stress portion of the exam was monitored by the cardiology service. The patient exercised for 4 minutes 14 seconds. Maximum heart rate achieved was 160 beats per minute which corresponds to 98 % of age predicted maximum heart rate. Stress was adequate. There are no stress-induced or fixed perfusion defects. The left ventricular ejection fraction is normal at greater than 70 %. There are no wall motion abnormalities. Impression- Normal myocardial perfusion scan. Reading Kady PICKERING M.D. Releasing Kady PICKERING M.D. Released Date Time- 12/21/07 1120 Garment Mender- IVELISSE Hubbard ADM- MENA VAIL ATT- MENA VAIL REF- CON- HOLLY- MATTIE APPIAH SCP- Procedure Note DonnaGeneva britton W - 12/23/2007 Dual isotope radionuclide gated SPECT myocardial perfusion scan 12/21/2007 Indication- Chest Pain Radiopharmaceutical- Tc 99m Tetrofosmin 40.0 mCi IV administered at stress. Technetium 99m Tetrofosmin 10.0 mCi IV administered at rest. Findings- Stress portion of the exam was monitored by the cardiology service. The patient exercised for 4 minutes 14 seconds. Maximum heart rate achieved was 160 beats per minute which corresponds to 98 % of age predicted maximum heart rate. Stress was adequate. There are no stress-induced or fixed perfusion defects. The left ventricular ejection fraction is normal at greater than 70 %. There are no wall motion abnormalities. Impression- Normal myocardial perfusion scan. Reading Kady PICKERING M.D. Releasing Kady PICKERING M.D. Released Date Time- 12/21/07 1120 Etta OVIEDO M.D. MENA HUNT MANISHA S REF- CON- MATTIE RICHARDS SCP- Mena Vail MD [place] ORDERABLES * NUC MYOCARDIAL PERFUSION EF (12/21/2007 10:42 AM CDT) Anatomical Region Laterality Modality Chest Other 12/21/2007 10:4 2 AM CDT Narrative 12/23/2007 7:45 AM CDT Dual isotope radionuclide gated SPECT myocardial perfusion scan 12/21/2007 Indication- Chest Pain Radiopharmaceutical- Tc 99m Tetrofosmin 40.0 mCi IV administered at stress. Technetium 99m Tetrofosmin 10.0 mCi IV administered at rest. Findings- Stress portion of the exam was monitored by the cardiology service. The patient exercised for 4 minutes 14 seconds. Maximum heart rate achieved was 160 beats per minute which corresponds to 98 % of age predicted maximum heart rate. Stress was adequate. There are no stress-induced or fixed perfusion defects. The left ventricular ejection fraction is normal at greater than 70 %. There are no wall motion abnormalities. Impression- Normal myocardial perfusion scan. Reading Radiologist- GENEVA PICKERING M.D. Releasing RadiologistJoshua PICKERING M.D. Released Date Time- 12/21/07 1120 Etta OVIEDO M.D. MENA HUNT MANISHA S REF- CON- PCP- WILKEY, KEITH D SCP- Procedure Note Donna Geneva W - 12/23/2007 Dual isotope radionuclide gated SPECT myocardial perfusion scan 12/21/2007 Indication- Chest Pain Radiopharmaceutical- Tc 99m Tetrofosmin 40.0 mCi IV administered at stress. Technetium 99m Tetrofosmin 10.0 mCi IV administered at rest. Findings- Stress portion of the exam was monitored by the cardiology service. The patient exercised for 4 minutes 14 seconds. Maximum heart rate achieved was 160 beats per minute which corresponds to 98 % of age predicted maximum heart rate. Stress was adequate. There are no stress-induced or fixed perfusion defects. The left ventricular ejection fraction is normal at greater than 70 %. There are no wall motion abnormalities. Impression- Normal myocardial perfusion scan. Reading Radiologist- GENEVA PICKERING M.D. Releasing Radiologist- GENEVA PICKERING M.D. Released Date Time- 12/21/07 1120 Garment Mender- IVELISSE Hubbard ADM- MENA VAIL ATT- MENA VAIL REF- CON- PCP- MATTIE APPIAH [facility]- Mena Vail MD [place] ORDERABLES * NUC MYOCARD PERFUSION SPECT STRESS AND REST (12/21/2007 9:25 AM CDT) Anatomical Region Laterality Modality Chest Other 12/21/2007 9:25 AM CDT Narrative 12/23/2007 7:45 AM CDT Dual isotope radionuclide gated SPECT myocardial perfusion scan 12/21/2007 Indication- Chest Pain Radiopharmaceutical- Tc 99m Tetrofosmin 40.0 mCi IV administered at stress. Technetium 99m Tetrofosmin 10.0 mCi IV administered at rest. Findings- Stress portion of the exam was monitored by the cardiology service. The patient exercised for 4 minutes 14 seconds. Maximum heart rate achieved was 160 beats per minute which corresponds to 98 % of age predicted maximum heart rate. Stress was adequate. There are no stress-induced or fixed perfusion defects. The left ventricular ejection fraction is normal at greater than 70 %. There are no wall motion abnormalities. Impression- Normal myocardial perfusion scan. Reading Kady PICKERING M.D. Releasing Kady PICKERING M.D. Released Date Time- 12/21/071119 Etta OVIEDO M.D. MENA HUNT- MENA VAIL REF- CON- HOLLY- MATTIE APPIAH SCP- Procedure Note Geneva Pickering W - 12/23/2007 Dual isotope radionuclide gated SPECT myocardial perfusion scan 12/21/2007 Indication- Chest Pain Radiopharmaceutical- Tc 99m Tetrofosmin 40.0 mCi IV administered at stress. Technetium 99m Tetrofosmin 10.0 mCi IV administered at rest. Findings- Stress portion of the exam was monitored by the cardiology service. The patient exercised for 4 minutes 14 seconds. Maximum heart rate achieved was 160 beats per minute which corresponds to 98 % of age predicted maximum heart rate. Stress was adequate. There are no stress-induced or fixed perfusion defects. The left ventricular ejection fraction is normal at greater than 70 %. There are no wall motion abnormalities. Impression- Normal myocardial perfusion scan. Reading Kady PICKERING M.D. Releasing Kady PICKERING M.D. Released Date Time- 12/21/071119 Etta OVIEDO M.D. MENA HUNT ATT- MENA VAIL REF- CON- PCP- MATTIE APPIAH SCP- Mena Vail MD [place] ORDERABLES * TROPONIN I (12/21/2007 6:20 AM CDT) Only the most recent of5 resultswithin the time period is included. Troponin I 0.467 0.00 - 1.00 ng/ml [facility] Interpretation Troponin [facility] Comment: Diagnostic cutoff for the AMI is 2.0 ng/ml. Any condition resulting in myocardial cell damage can potentially increase Troponin I levels above the expected range. Clinical studies have documented these conditions to include unstable angina, congestive heart failure, myocarditis, and cardiac surgery or invasive testing. 12/21/2007 6:20 AM CDT Mena Vail MD LAB - CHEMISTRY ORDERABLES Performing Organization Address [facility] Co de Phone Number [facility] * (ABNORMAL) BASIC METABOLIC PANEL (CALCIUM TOTAL) (12/20/2007 7:20 AM CDT) Glucose 108(DH) 65 - 105 mg/dl [facility] BUN 10 7 - 17 mg/dl [facility] Creatinine 0.8 0.7 - 1.2 mg/dl [facility] Sodium 149(H) 137 - 145 mmol/L [facility] Potassium 3.6 3.6 - 5.0 mmol/L [facility] Chloride 106 98 - 107 mmol/L [facility] CO2 28 22 - 30 mmol/L [facility] Calcium 9.6(DE) 8.4 - 10.2 mg/dl [facility] 12/20/2007 7:20 AM CDT Abdi Ring MD LAB - CHEMISTRY [place] Performing Organization Address [facility]/ZIP Co de Phone Number [facility] * LIPASE BLOOD (12/20/2007 7:20 AM CDT) Only the most recent of2 resultswithin the time period is included. Lipase 142 23 - 208 U/L [facility] 12/20/2007 7:20 AM CDT Abdi Ring MD LAB - CHEMISTRY ORDE RABLES Performing Organization Address [facility]/ZIP Co de Phone Number [facility] * PTT (12/20/2007 1:15 AM CDT) PTT 27.0 26.0 - 32.8 seconds [facility] 12/20/2007 1:15 AM CDT Mena Vail MD LAB - COAGULATIO N ORDERABLES Performing Organization Address [facility] Co de Phone Number [facility] * XR CHEST 1VW PORTABLE (12/19/2007 1:55 PM CDT) Anatomical Region Laterality Modality Chest Other 12/19/2007 1:55 PM CDT Narrative 12/19/2007 2:06 PM CDT PORTABLE AP CHEST Indication- Nausea, vomiting, fever and abdominal pain Single AP upright view of the chest shows the lungs to be expanded and clear. The cardiac and mediastinal silhouettes and pulmonary vascularity are within normal limits. Summary- Normal AP chest x-ray Reading Kady Robles Releasing Kady Robles Released Date Time- 12/19/07 5736 Garment MenderJoshua Robles - ABDI RING JONAS REF- CON- MATTIE RICHARDS SCP- Procedure Note Wandy Rodriguez - 12/19/2007 PORTABLE AP CHEST Indication- Nausea, vomiting, fever and abdominal pain Single AP upright view of the chest shows the lungs to be expanded and clear. The cardiac and mediastinal silhouettes and pulmonary vascularity are within normal limits. Summary- Normal AP chest x-ray Reading Radiologist- WANDY Robles Releasing Radiologist- WANDY Robles Released Date Time- 12/19/07 1406 Garment MenderJoshua Robles - ABDI RING- ABDI RING REF- CON- PCP- MATTIE APPIAH SCP- Abdi Ring MD DIAGNOSTIC IMAGING O RDERABLES * (ABNORMAL) CBC W AUTO DIFFERENTIAL (12/19/2007 1:30 PM CDT) WBC 6.44 4.0 - 11.0 X(10)3/L [facility] RBC 5.21 3.8 - 5.3 X(10)6 [facility] Hemoglobin 16.2(H) 12.0 - 16.0 gm/dl [facility] Hematocrit 44.8 36 - 47 % [facility] MCV 86.0 80.0 - 99.0 fl [facility] MCH 31.1 26 - 34 pg [facility] MCHC 36.2 32.0 - 37.0 gm/dl [facility] RDW 11.9 11.5 - 14.5 % [facility] Platelet Count 257 150 - 400 K/CUMM [facility] MPV 9.8 9.2 - 12.2 fl [facility] Granulocytes % 71.9(H) 43 - 70 % [facility] Granulocytes Absolute 4.63 1.7 - 6.7 X(10)3 [facility] Lymphocytes % 21.1(L) 22 - 41 % [facility] Lymphocytes Absolute 1.36 0.9 - 3.2 X(10)3 [facility] Monocytes % 6.4 2.0 - 11.0 % [facility] Monocytes Absolute 0.41 0.2 - 0.9 X(10)3 [facility] Eosinophils % 0.3 0.0 - 5.0 % [facility] Eosinophils Absolute 0.02 0.0 - 0.4 X(10)3 [facility] Basophils % 0.3 0 - 2 % [facility] Basophils Absolute 0.02 0.0 - 0.2 X(10)3 [facility] Comment Manual Diff Manual Diff Not Indicated [facility] 12/19/2007 1:30 PM CDT Abdi Ring MD LAB - HEMATOLOGY ORD [facility] Organization Address City/State/ZIP Co de Phone Number [facility] * B-TYPE NATRIURETIC PEPTIDE (12/19/2007 1:30 PM CDT) BNP <5.0 0.0 - 99.9 pg/ml [facility] Interpretation BNP S [facility] Comment: A cutoff of 100 pg/ml has been demostrated to provide the maximal combination of sensitivity, specificity, and negative predictive value for contributing to the diagnosis of congestive heart failure(CHF) only. A BNP value greater than or equal to 100 pg/ml is consistent with a diagnosis of CHF in the appropriate clinical setting. False positive results are more common in females greater than 75 years of age. Blood concentrations of natriuretic peptides may also be elevated in patients with myocardial infarction and in patients who are candidates for or are undergoing renal dialysis. 12/19/2007 1:30 PM CDT Abdi Ring MD LAB - CHEMISTRY [place] Performing Organization Address [facility] Co de Phone Number [facility] * CKMB (12/19/2007 1:30 PM CDT) CK-MB 2.38 SEE BELOW ng/ml [facility] Comment: <5.10 Negative 5.10-10.0 Intermediate >10.0 Positive 12/19/2007 1:30 PM CDT Abdi Ring MD LAB - CHEMISTRY [place] Performing Organization Address [facility] de Phone Number [facility] * CK BLOOD (12/19/2007 1:30 PM CDT) CK 41 30 - 135 U/L [facility] 12/19/2007 1:30 PM CDT Abdi Ring MD LAB - CHEMISTRY [place] Performing Organization Address [facility] Co de Phone Number [facility] * AMYLASE BLOOD (12/19/2007 1:30 PM CDT) Amylase 50 30.0 - 110.0 U/L [facility] 12/19/2007 1:30 PM CDT Abdi Ring MD LAB - CHEMISTRY [place] Performing Organization Address [facility] Co de Phone Number [facility] * GROSS + MICRO EXAM (05/18/2006 7:15 AM SUPERINTENDENT PIER) Only the most recent of2 resultswithin the time period is included. Result CASE NUMBER [id number] Comment: ORDERING PHYSICIAN RADHA AREVALO SPECIMEN TYPE Biopsy DATE OF PROCEDURE 05/18/2006 SPECIMEN LABELED Duodenum, ulcerative duodenitis PRE-OP DIAGNOSIS Epigastric pain GROSS DESCRIPTION GROSS DESCRIPTION The specimen is received labeled duodenum for patient Daniela Zuniga. It consists of three small fragments of pinkish-white soft tissue, each measuring approximately 3 mm in diameter. The specimen is totally submitted in one cassette. A Clotest card is also received. Dictated by Elisa Mcguire M.D. MICROSCOPIC DESCRIPTION The duodenal biopsy shows three fragments of duodenal mucosa, one of which shows ulceration of the mucosa with acute and chronic inflammation. There is no evidence of malignancy. The Clotest is negative for Helicobacter organisms. DIAGNOSIS Duodenum, endoscopic biopsy ulceration with acute and chronic inflammation Stomach, Clotest negative for Helicobacter organisms Dictated by Elisa Mcguire M.D. Garment Mender TERENCE SIBLEY Electronically Signed By ELISA MCGUIRE MISCELLANEOUS SAMPLES / Unknown 05/18/2006 7:15 AM SUPERINTENDENT PIER 05/18/2006 1:04 PM SUPERINTENDENT PIER Historical Provider LAB - PATHOLOGY/C YTOLOGY ORDERABLES Care Teams Cotton Classer Aide Relationship Specialty [place] [id number] [facility] [place] [address] PCP - General 09/22/10
--- OUTSIDE RECORDS SUMMARY | 2024-07-19 10:33 | XMS_ITS | Encounter Summary ---
Author Organization [facility] [place] [address] [place] [address] Care Team Providers Care Oiler And Greaser Name Role Phone Unavailable Primary Care Provider Unavailabl e Prior Encounters Date Type Department Care Team Description 09/08/2021 10:15 AM CDT Office Visit [facility] [address] [place] [address] Devi Trujillo RDH 09/08/2021 Travel 09/08/2021 10:00 AM CDT Office Visit [facility] [address] [place] [address] Santi Sheehan DDS Plan of Treatment Not on file Procedures Procedure Name Priority Date/Time Associated Diagnosis Comments ORAL HYGIENE INSTRUCTIONS Routine 2021 10:15 AM CDT TOPICAL APPLICATION OF FLUORIDE VARNISH Routine 09/08/2021 10:15 AM CDT PROPHYLAXIS - ADULT Routine 09/08/2021 1 0:15 AM CDT COMPREHENSIVE ORAL EVALUATION - NEW OR ESTABLISHED PATIENT Routine 09/08/2021 10:00 AM CDT INTRAORAL PHOTO Routine 09/08/2021 10:00 AM CDT INTRAORAL PHOTO Routine 09/08/2021 10:00 AM CDT INTRAORAL PHOTO Routine 09/08/2021 10:00 AM CDT INTRAORAL PHOTO Routine 09/08/2021 10:00 AM CDT PANORAMIC RADIOGRAPHIC IMAGE Routine 09/08/2021 10:00 AM CDT INTRAORAL - COMPREHENSIVE SERIES OF RADIOGRAPHIC IMAGES Routine 09/08/2021 10:00 AM CDT 30 ENDODONTIC THERAPY, MOLAR TOOTH (EXCLUDING FINAL SABIANIST) Routine 09/08/2021 12:00 AM CDT 30 CEREC CROWN Routine 09/08/2021 12:00 AM CDT Visit Diagnoses Not on file Insurance [employer]
[2024-07-19 10:38] LABS: Basophils Percent Auto 0.6 % (0.2-1.2); Hematocrit 45.5 % (37.0-47.0); Hemoglobin 15.3 g/dL (12.0-15.0); Immature Granulocyte Absolute 0.02 K/mm3 (0.00-0.031); Immature Granulocyte Percent A 0.4 % (0-0.5); Lymphocytes Absolute Auto 0.56 K/mm3 (0.9-3.2); Lymphocytes Percent Auto 10.5 % (18.3-44.2); Mean Corpuscular HGB Conc 33.6 g/dl (32-36); Mean Corpuscular Hemoglobin 29.1 pg (26-34); Mean Corpuscular Volume 86.7 fl (80-100); Mean Platelet Volume 9.9 fl (7.4-10.4); Monocytes Absolute Auto 0.5 K/mm3 (0.1-0.6); Monocytes Percent Auto 8.6 % (2.6-8.5); Neutrophils Absolute Auto 4.3 K/mm3 (1.3-6.7); Neutrophils Percent Auto 79.9 % (45.5-73.1); Platelet Count Result 149 k/mm3 (150-375); Red Blood Count 5.25 M/mm3 (4.2-5.4); Red Cell Distribution Width 12.5 % (11.5-14.5); White Blood Count 5.3 K/mm3 (4.5-10.0)
[2024-07-19 10:46] LABS: Alanine Aminotransferase 33 U/L (6-35); Albumin Level 4.7 g/dL (3.5-5.1); Alkaline Phosphatase 93 U/L (38-126); Anion Gap 12 mmol/L (4-12); Aspartate Amino Transferase 43 U/L (14-36); Bilirubin,Total 1.5 mg/dL (0.2-1.3); Blood Urea Nitrogen 11 mg/dL (7-17); Calcium 9.8 mg/dL (8.4-10.2); Carbon Dioxide 29 mmol/L (22-30); Chloride 99 mmol/L (98-107); Estimated CRCL calculation 51 ml/min; Estimated Glomerular Filt Rate > 60; Glucose 103 mg/dL (65-110); Potassium 3.8 mmol/L (3.4-5.0); Sodium 140 mmol/L (137-145)
[2024-07-19 11:18] LABS: Influenza A QL RT-PCR Positive (Negative); Influenza B QL RT-PCR Negative (Negative); RSV RNA, RT-PCR Negative (Negative); SARS-CoV-2 RNA PCR Negative (Negative)
[2024-07-19 11:51] VITALS: BP 105/61; PULSE 84; RESP 18; O2SAT 97
[2024-07-19 12:09] LABS: Add Urine Microscopic? YES; Appearance Urine Clear (Clear); Bacteria Urine 3+ /hpf; Bilirubin Urine Negative (Negative); Blood Urine Negative (Negative); Color Urine Yellow (Yellow); Glucose Urine UA Negative (Negative); Ketones Urine Negative (Negative); Leukocyte Esterase Ur Negative LEU/UL (Negative); Nitrate Urine Positive (Negative); Non Pathogenic Casts 0-2; Protein Urine Negative (Negative); RBC Urine 0-2 /hpf (0-2); Specific Grav Ur 1.012 (1.001-1.035); Squamous Epithelial Cell Urine None Seen /hpf (Few); Urobilinogen Urine 0.2 mg/dL (<2.0); WBC Urine 0-5 /hpf (0-3); pH Urine 5.5 (5.0-9.0)
[2024-07-19] MEDS: AZITHROMYCIN 250 MG TABLET 500 MG PO (12:55)
[2024-07-19 13:01] VITALS: BP 129/75; PULSE 81; RESP 20; O2SAT 95
== END 2024-07-19 13:44 | disposition home or self-care (01) ==
PROVIDERS: Emergency Provider Student in an Organized Health Care Education/Training Program
DX: J11.00 Influenza due to unidentified influenza virus with unspecified type of pneumonia (principal); Z20.822 Contact with and (suspected) exposure to COVID-19; I10 Essential (primary) hypertension; E78.5 Hyperlipidemia, unspecified; R94.31 Abnormal electrocardiogram [ECG] [EKG]
CPT/HCPCS: 36415; 70450; 71046; 80053; 81001; 85025; 87086; 87186; 87637; 93005; 96361; 96365; 99284; A9270; J0696; J7120